=== PATIENT | female | born 1960 | race Caucasian/White ===

== ENCOUNTER 2022-06-24 14:05 | Emergency (ER) | payer BC ==
[~2022-06-24] VITALS: Ht 157.5 cm; Wt 61.2 kg
--- NOTE | 2022-06-24 14:28 | NUR ---
Patient AOx4 able to express her concerns. Patient states feeling well other than the pain to bilt. lower extr. due to recent fall. Discussed plan of care, pt verbalized agreement. All safety precautions taken.
--- NOTE | 2022-06-24 14:54 | NUR ---
manager technology at bedside.
[2022-06-24 15:41] VITALS: BP 128/74
--- NOTE | 2022-06-24 15:41 | NUR ---
Patient discharged to home in stable condition. Written and verbal after care instructions given. Patient verbalizes understanding of instruction.
== END 2022-06-24 15:42 | disposition home or self-care (01) ==
LOC: ER 14:12
DX: M79.672 Pain in left foot (principal); M79.671 Pain in right foot; I10 Essential (primary) hypertension; Z88.1 Allergy status to other antibiotic agents
CPT/HCPCS: 73630-TC